=== PATIENT | male | born 1995 | race Two or more races ===

== ENCOUNTER 2018-06-08 17:35 | Emergency (ER) | payer BC ==
[~2018-06-08] VITALS: Ht 172.7 cm; Wt 85.0 kg
[2018-06-08 19:20] LABS: HEMATOCRIT 40.2 % (38.0-50.0); HEMOGLOBIN 13.8 G/DL (12.5-16.6); MCH 29.2 PG (29.0-34.0); MCHC 34.3 G/DL (30.0-36.0); MCV 85.2 FL (86-99); PLATELET COUNT 267 K/uL (156-360); RBC DIS.WIDTH-SD 37.5 % (39-53); RED BLOOD COUNT 4.72 M/uL (4.00-5.50); WHITE BLOOD COUNT 6.3 K/uL (4.1-10.2)
[2018-06-08 19:31] LABS: CHLORIDE 104 mEq/L (99-109); POTASSIUM 4.1 mEq/L (3.7-5.4); SODIUM 140 mEq/L (136-147)
[2018-06-08 19:33] LABS: GLUCOSE 101 mg/dL (70-99)
[2018-06-08 19:37] LABS: GFR ESTIMATE (CALCULATED) > 59 mL/min/ (58.99-99999)
[2018-06-08 19:38] LABS: UREA NITROGEN (BUN) 19 mg/dL (9-23)
[2018-06-08 19:55] VITALS: BP 124/80
[2018-06-09 10:27] LABS: TREPONEMA ANTIBODY NEGATIVE (NEGATIVE)
[2018-06-09 18:32] LABS: Rickettsia (RMSF) IgG Not Detected (Not Detected); Rickettsia (RMSF) IgM Not Detected (Not Detected)
== END 2018-06-08 19:56 | disposition home or self-care (01) ==
LOC: EME 17:35
PROVIDERS: Physician Assistant
DX: B09 Unspecified viral infection characterized by skin and mucous membrane lesions (principal)
CPT/HCPCS: 80048; 85027; 86757 90; 86780; 99281; 99284